=== PATIENT | female | born 1965 | race Caucasian/White ===

== ENCOUNTER 2019-02-23 09:09 | Emergency (ER) | payer BC, MEDICAID ==
[~2019-02-23] VITALS: Ht 167.6 cm; Wt 100.7 kg
[~2019-02-23 09:09] MED LIST: OMEP20CA74 PO
[2019-02-23] MEDS ORDERED: cloNIDine HCL 0.1 MG TAB PO ONE (09:45)
[2019-02-23 10:15] LABS: Urine Bacteria NONE SEEN /hpf (None Seen); Urine Blood Negative /uL (Negative); Urine Specific Gravity 1.003 (1.001-1.035); Urine WBC <1 /hpf (0 - 5)
[2019-02-23 10:32] VITALS: BP 134/87
== END 2019-02-23 11:23 | disposition home or self-care (01) ==
LOC: ER 09:09
DX: I16.0 Hypertensive urgency (principal); I10 Essential (primary) hypertension; E78.5 Hyperlipidemia, unspecified; Z90.710 Acquired absence of both cervix and uterus; Z90.89 Acquired absence of other organs; Z88.1 Allergy status to other antibiotic agents
CPT/HCPCS: 81001